=== PATIENT | male | born 1940 | race Caucasian/White ===

== ENCOUNTER 2017-06-15 15:19 | Emergency (ER) | payer MEDICARE, BC ==
[2017-06-15 16:22] VITALS: BP 168/82; PULSE 67; RESP 18; TEMP 97.9
--- NOTE | 2017-06-15 18:22 | ED ---
Upper Extremity HPI - General Chief Complaint: Extremity Injury, Upper Stated Complaint: finger swelling-sent by [facility] Time Seen by Provider: 06/15/17 17:39 Source: patient, RN notes reviewed, old records reviewed Mode of arrival: ambulatory Limitations: no limitations - History of Present Illness Initial Comments: This is a 77-year-old male presenting to the emergency Department chief complaint of right middle finger swelling and irritation. Patient reports he was stung by a yesterday, . Afterwards he put ice over it. He states that after putting ice on it he is now developed frostbite, blistering to the distal end of the finger. Patient reports he has no sensation distally. He was sent here after seeing a physician at [facility]. They sent him here to see a hand specialist. He already received antibiotics. Review of Systems ROS Statement: Those systems with pertinent positive or pertinent negative responses have been documented in the HPI. ROS Other: All systems not noted in ROS Statement are negative. Past Medical History Past Medical History: Diabetes Mellitus History of Any Multi-Drug Resistant Organisms: None Reported Past Surgical History: Cholecystectomy, Hernia Repair Additional Past Surgical History / Comment(s): laminectomy Past Psychological History: No Psychological Hx Reported Smoking Status: Current some day smoker Past Alcohol Use History: None Reported Past Drug Use History: None Reported General Exam - General Exam Comments Initial Comments: Is a 77-year-old male. No acute distress. Limitations: no limitations General appearance: alert, in no apparent distress Head exam: Present: atraumatic, normocephalic, normal inspection Eye exam: Present: normal appearance, PERRL, EOMI. Absent: scleral icterus, conjunctival injection, periorbital swelling ENT exam: Present: normal exam, mucous membranes moist Neck exam: Present: normal inspection. Absent: tenderness, meningismus, lymphadenopathy Respiratory exam: Present: normal lung sounds bilaterally. Absent: respiratory distress, wheezes, rales, rhonchi, stridor Cardiovascular Exam: Present: regular rate, normal rhythm, normal heart sounds. Absent: systolic murmur, diastolic murmur, rubs, gallop, clicks GI/Abdominal exam: Present: soft, normal bowel sounds. Absent: distended, tenderness, guarding, rebound, rigid Extremities exam: Present: normal inspection, full ROM, normal capillary refill. Absent: tenderness, pedal edema, joint swelling, calf tenderness Right Upper Arm exam: Present: normal inspection, full ROM Elbow exam: Present: normal inspection, full ROM Forearm Wrist exam: Present: normal inspection, full ROM Hand Wrist exam: Present: full ROM, swelling (Swelling over the left middle finger, has a bulla over the medial aspect of the middle finger.). Absent: normal inspection, tenderness Neuro motor exam: Present: wrist extension intact, thumb opposition intact, thumb IP flexion intact, thumb adduction intact, fingers 2-5 abduction intact Vascular: Present: normal capillary refill Back exam: Present: normal inspection Neurological exam: Present: alert, oriented X3, CN II-XII intact Psychiatric exam: Present: normal affect, normal mood Skin exam: Present: warm, dry, intact, normal color. Absent: rash Course Vital Signs 06/15/17 16:18 Temperature 97.9 F Pulse Rate 67 Respiratory 18 Rate Blood Pressure 168/82 O2 Sat by Pulse 97 Oximetry - Reevaluation(s) Reevaluation #1: 06/15/17 18:52 Patient is extremely upset due to the length of time that he was in the emergency department. Discussed that we have to triage based off of symptoms, and that she is very busy at this time. Patient continues to be irate. Procedures - Incision & Drainage Consent Obtained: verbal consent Time Out Performed?: Yes Indication: right middle finger blister Size (cm): 2 I&D Cleaning Method: Iodine Sterile Field Used?: Yes Irrigation Performed?: Yes I&D Drainage Obtained: Serous Culture Obtained?: No Patient Tolerated Procedure: well, no complications Medical Decision Making - Medical Decision Making 77-year-old male presents emergency department increased swelling over the medial middle right finger, after putting ice over it after receving a bee sting yesterday. Patient has what appears to be large bulla and blister over the distal phalanx. REports diminished sensation. Patient refused x-ray of the finger. Patient did receive incision and drainage over the blisters over the little finger. He was also evaluated byDr. Macario. Discussed that he needs follow-up with a hand specialist Dr. Dickerson, hand specialist Assessment will not have here this evening. Patient received antibiotics at urgent care earlier and does have a prescription for them. Discussed close follow-up with hand specialist. Patient agrees to treatment plan will comply. Return parameters were discussed. Disposition Clinical Impression: Frostbite with tissue necrosis of finger of right hand Disposition: HOME SELF-CARE Condition: Good Instructions: Frostbite (ED), Swollen Joint (ED) Additional Instructions: Patient advised to keep the finger covered. Follow up with hand specialist on Sunday. Motrin or Tylenol for pain. Return to emergency department if any alarming signs or symptoms occur. Referrals: Aspen Elliott MD [Primary Care Provider] - 1-2 days Som Dickerson DO [Doctor of Osteopathic Medicine] - 1-2 days Time of Disposition: 18:36
== END 2017-06-15 18:51 | disposition home or self-care (01) ==
LOC: EC 15:19
DX: T34.531A Frostbite with tissue necrosis of right finger(s), initial encounter (principal); F17.200 Nicotine dependence, unspecified, uncomplicated; X31.XXXA Exposure to excessive natural cold, initial encounter
CPT/HCPCS: 26010; 99283

== ENCOUNTER → 2019-04-01 | Outpatient (CLI) | payer MEDICARE, BC ==
--- NOTE | 2019-04-01 10:01 | XR ---
EXAMINATION TYPE: XR abdomen 1V DATE OF EXAM: 04/01/2019 9:54 AM CLINICAL HISTORY: Known left-sided nephrolithiasis TECHNIQUE: Single supine KUB image of the abdomen is obtained. COMPARISON: None. FINDINGS: There are multiple left-sided renal calculi the largest measuring up to 4 mm. There are at least 10 left renal calculi and at least 3 punctate right renal calculi. Atherosclerosis of the pelvi s and probable prostate gland calcifications are seen. No suspicious calculi along the courses of the ureters are identified. Extensive degenerative changes of the lumbosacral spine and femoral acetabul ar joints are seen with diffuse osseous demineralization. No dilated overlying bowel. Cholecystectomy clips are IMPRESSION: Bilateral renal calculi are seen, left greater than right, all subcentimeter measuring up to 4 mm on the left.
== END | disposition home or self-care (01) ==
LOC: RADXRMAIN 09:41
PROVIDERS: ATTEND Urology
DX: N20.0 Calculus of kidney (principal)
CPT/HCPCS: 74018

== ENCOUNTER → 2019-04-30 | Outpatient (CLI) | payer MEDICARE, BC ==
--- NOTE | 2019-04-30 11:01 | CT ---
EXAMINATION TYPE: CT abdomen pelvis wo con DATE OF EXAM: 04/30/2019 HISTORY: Left sided flank pain with history of kidney stones. CT DLP: 756.4 mGycm. Automated Exposure Control for Dose Reduction was Utilized. TECHNIQUE: CT scan of the abdomen and pelvis is performed without oral or IV contrast. COMPARISON: NONE FINDINGS: Within the limitations of a non-contrast study, the following observations are made. LUNG BASES: Linear scarring in the lingula is present. There is patchy atelectasis in the left lung b ase. Coronary artery calcification in the RCA distribution is seen. LIVER/GB: Cholecystectomy clips are noted. PANCREAS: No significant abnormality is seen. 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 ADRENALS: No significant abnormality is seen. KIDNEYS: There are 3-4 calculi scattered throughout the right kidney measuring 4 mm or smaller in siz e. Some central vascular calcifications are present. There are suspected 5-8 scattered calculi throug hout the left kidney measuring 5 mm or smaller in size. There are additional renal lesions, for refer ence there is 5.5 cm simple appearing cyst posteriorly upper pole level left kidney. There are smalle r exophytic hypodense and hyperdense lesions favoring simple cysts and proteinaceous/hemorrhagic cyst mid to lower pole level. There is cortical thinning bilaterally. There is no hydronephrosis or obstr ucting ureteral calculi clearly seen bilaterally. No intraluminal calculus in the bladder are seen. BOWEL: Diverticula throughout the colon are present most prominent in the left and sigmoid colon. No CT evidence for acute diverticulitis. Normal-appearing appendix is seen from cecum in the right upper pelvis. GENITAL ORGANS: Prostate gland is enlarged in size with central calcifications. Findings consistent w ith underlying BPH. LYMPH NODES: No greater than 1cm abdominal or pelvic lymph nodes are appreciated. OSSEOUS STRUCTURES: Spine is straightened on sagittal images. There is multilevel moderate to severe spurring and disc space narrowing most prominent L3-L4 level. Moderate narrowing and spurring of both hip joints is seen. OTHER: Dvyy-zb-olngezwy calcified plaque of the aorta extends into branch vessels. IMPRESSION: Bilateral nephrolithiasis without hydronephrosis or obstructing ureteral calculi clearly seen bilaterally. Distal colonic diverticulosis without convincing CT evidence for acute diverticulit is. No suspicious acute findings seen to account for patient's symptoms of left-sided flank pain.
== END | disposition home or self-care (01) ==
LOC: RADCTMAIN 08:01
PROVIDERS: ATTEND Urology
DX: N20.0 Calculus of kidney (principal); K57.30 Diverticulosis of large intestine without perforation or abscess without bleeding
CPT/HCPCS: 74176

== ENCOUNTER 2020-05-13 20:43 | Emergency (ER) | payer MEDICARE, BC ==
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
[2020-05-13 20:54] LABS: Glucose,Whole Blood 301 mg/dL (75-99)
[2020-05-13 21:08] LABS: Basophils # (A) 0.1 k/uL (0-0.2); Basophils % (A) 1 %; Eosinophils # (A) 0.3 k/uL (0-0.7); Eosinophils % (A) 3 %; HCT 47.9 % (39.0-53.0); HGB 16.2 gm/dL (13.0-17.5); Lymphocytes # (A) 1.4 k/uL (1.0-4.8); Lymphocytes % (A) 12 %; MCH 33.4 pg (25.0-35.0); MCHC 33.9 g/dL (31.0-37.0); MCV 98.4 fL (80.0-100.0); Mean Platelet Volume 7.1; Monocytes # (A) 0.5 k/uL (0-1.0); Monocytes % (A) 4 %; Neutrophils # (A) 8.8 k/uL (1.3-7.7); Neutrophils % (A) 80 %; Platelet Count 199 k/uL (150-450); RBC 4.86 m/uL (4.30-5.90); RDW 12.9 % (11.5-15.5); WBC 11.1 k/uL (3.8-10.6)
[2020-05-13 21:18] LABS: Potassium 4.2 mmol/L (3.5-5.1)
[2020-05-13 21:19] LABS: ALT 25 U/L (4-49); AST 34 U/L (17-59); African American GFR (CKD) >90 (>60 ml/min/1.73 sqM); Alcohol <10 mg/dL; Alkaline Phosphatase 67 U/L (38-126); Amylase 36 U/L (30-110); Anion Gap 7 mmol/L; Blood Urea Nitrogen 18 mg/dL (9-20); Calcium 9.3 mg/dL (8.4-10.2); Carbon Dioxide 24 mmol/L (22-30); Chloride 104 mmol/L (98-107); Creatine Kinase 303 U/L (55-170); Glucose 315 mg/dL (74-99); INR 0.9 (<1.2); Non-African American GFR(CKD) 86 (>60 ml/min/1.73 sqM); Partial Thromboplastin Time 22.1 sec (22.0-30.0); Prothrombin Time 9.8 sec (9.0-12.0); Sodium 135 mmol/L (137-145); Total Bilirubin 0.5 mg/dL (0.2-1.3); Total Protein 6.5 g/dL (6.3-8.2)
[2020-05-13] MEDS ORDERED: ONDANSETRON 4 MG/2 ML VIAL IVP STA (21:22)
[2020-05-13] MEDS ORDERED: HYDROmorphone 1 MG/ML 1 ML SYRINGE IVP STA ×2 (21:22→23:12)
[2020-05-13] MEDS ORDERED: DIPH,PERTUS(ACELL)TETVAC-LF 0.5 ML VIAL IM ONE (21:22)
[2020-05-13 21:48] LABS: Creatine Kinase MB 3.8 ng/mL (0.0-2.4); Troponin I <0.012 ng/mL (0.000-0.034)
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
[2020-05-13 22:21] LABS: Appearance,Urine Clear (Clear); Bilirubin,Urine Negative (Negative); Blood,Urine Small (Negative); Color,Urine Light Yellow; Glucose,Urine (UA) 4+ (Negative); Ketones,Urine Negative (Negative); Leukocyte Esterase,Urine Negative (Negative); Mucus,Urine Rare /hpf; Nitrite,Urine Negative (Negative); Protein,Urine 1+ (Negative); RBC,Urine 10 /hpf (0-5); Urobilinogen,Urine <2.0 mg/dL (<2.0); WBC,Urine 2 /hpf (0-5)
[2020-05-13 22:22] LABS: Amphetamine Screen,Urine Not Detected (NotDetected); Barbiturate Screen,Urine Not Detected (NotDetected); Benzodiazepines Screen,Urine Not Detected (NotDetected); Cocaine Screen,Urine Not Detected (NotDetected); Methadone Screen, Urine Not Detected (NotDetected); Opiate Screen,Urine Detected (NotDetected); Oxycodone Screen, Urine Not Detected (NotDetected); Phencyclidine Screen,Urine Not Detected (NotDetected); Tricyclic Antidepressant,Urine Not Detected (NotDetected); Urn Cannabinoid Scrn Not Detected (NotDetected)
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
[2020-05-14 00:09] VITALS: RESP 18
== END 2020-05-13 23:22 | disposition other institution (70) ==
LOC: EC 20:43
DX: S32.401A Unspecified fracture of right acetabulum, initial encounter for closed fracture (principal); S22.42XA Multiple fractures of ribs, left side, initial encounter for closed fracture; S51.012A Laceration without foreign body of left elbow, initial encounter; Z23 Encounter for immunization; E11.9 Type 2 diabetes mellitus without complications; Z79.899 Other long term (current) drug therapy; Z79.4 Long term (current) use of insulin; V29.9XXA Motorcycle rider (driver) (passenger) injured in unspecified traffic accident, initial encounter; Y92.410 Unspecified street and highway as the place of occurrence of the external cause
CPT/HCPCS: 99291; 96374; 96375; 96376; 90471; 36415; 93005; 86900; 86901; 80053; 82150; 82550; 82553; 83605; 83690; 84484; 85025; 85610; 85730; 86850; 81001; 80306; 80320; 72170; 71045; 72125; 70450; 71260; 74177; 90715; J2405; J1170; Q9967

== ENCOUNTER → 2020-07-09 | Outpatient (CLI) | payer MEDICARE, BC ==
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
== END | disposition home or self-care (01) ==
LOC: RADXRYALE 09:43
PROVIDERS: ATTEND Orthopaedic Surgery
DX: S32.401A Unspecified fracture of right acetabulum, initial encounter for closed fracture (principal)
CPT/HCPCS: 72170

== ENCOUNTER 2020-07-14 13:10 | Emergency (ER) | payer MEDICARE, BC ==
[2020-07-14 13:37] VITALS: RESP 18
--- NOTE | 2020-07-14 14:08 | XR ---
EXAMINATION TYPE: XR shoulder complete LT DATE OF EXAM: 07/14/2020 COMPARISON: NONE HISTORY: Pain TECHNIQUE: Three views are submitted. FINDINGS: The osseous structures are intact. There is no acute fracture or dislocation. There is a deformity o f the left distal clavicle which appears to be chronic. There appears to be a acute fracture of the l eft second, third, fourth, fifth, sixth, and seventh ribs. No sizable pneumothorax is seen in the vis ualized portion of the lung field. Arthropathy of the shoulder. IMPRESSION: 1. Deformity of the distal left clavicle likely is chronic with AC joint arthropathy. 2. There are numerous acute displaced left-sided rib fractures extending from the left second through at least 11 ribs laterally. No sizable pneumothorax on the visualized portion of the lungs. These we re reported by recent CT scan of 05/13/2020.
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
[2020-07-14 15:12] VITALS: BP 183/80; PULSE 64; TEMP 98
== END 2020-07-14 15:11 | disposition home or self-care (01) ==
LOC: EC 13:10
DX: M79.89 Other specified soft tissue disorders (principal); S22.42XA Multiple fractures of ribs, left side, initial encounter for closed fracture; E11.9 Type 2 diabetes mellitus without complications; Z79.899 Other long term (current) drug therapy; Z79.84 Long term (current) use of oral hypoglycemic drugs; Z79.4 Long term (current) use of insulin; V29.9XXA Motorcycle rider (driver) (passenger) injured in unspecified traffic accident, initial encounter; Y92.410 Unspecified street and highway as the place of occurrence of the external cause
CPT/HCPCS: 99283

== ENCOUNTER → 2021-05-13 | Outpatient (CLI) | payer MEDICARE, BC ==
--- NOTE | 2021-05-13 10:25 | XR ---
EXAMINATION TYPE: XR KUB DATE OF EXAM: 05/13/2021 10:00 AM CLINICAL HISTORY: kidney stone TECHNIQUE: Single supine KUB image of the abdomen is obtained. COMPARISON: 05/13/2019. FINDINGS: Scattered gas is seen in non-distended small bowel loops. Gas and fecal material is seen in non-distended colon. Left rib fractures are redemonstrated. Extensive right pelvic hardware is pr esent. The renal shadows are obscured by bowel contents; CT is more sensitive. IMPRESSION: The renal shadows are obscured by bowel contents; CT is more sensitive.
== END | disposition home or self-care (01) ==
LOC: RADXRMAIN 09:32
PROVIDERS: ATTEND Urology
DX: N20.0 Calculus of kidney (principal)
CPT/HCPCS: 74018

== ENCOUNTER → 2021-06-24 | Outpatient (CLI) | payer MEDICARE, BC ==
--- NOTE | 2021-06-24 10:48 | CT ---
EXAMINATION TYPE: CT abdomen pelvis wo con DATE OF EXAM: 06/24/2021 COMPARISON: 05/13/2020 HISTORY: Hematuria, Lt sided pain CT DLP: 1217 mGycm Examination of the solid and hollow viscera is limited given the lack of contrast. FINDINGS: LUNG BASES: No evidence for nodule. No evidence for infiltrate. LIVER/GB: The gallbladder is unremarkable. No space-occupying hepatic lesion. PANCREAS: No pancreatic mass identified. No inflammatory process seen. SPLEEN: No evidence for splenomegaly. No intrasplenic lesions seen. ADRENALS: No adrenal nodules identified. No evidence for thickening. KIDNEYS: Proximal right ureteral calculus measuring 4.9 mm resulting in moderate right-sided hydronep hrosis. Perinephric stranding noted. Multiple additional right renal calculi measuring up to 5 mm. Mu ltiple nonobstructing left-sided renal calculi measuring up to 5 mm. Multiple hypoattenuating lesions seen bilaterally may reflect cysts. BOWEL: Appendix has a normal appearance. No evidence of bowel obstruction. No inflammatory process. Lymph nodes: No evidence for adenopathy greater than 1 cm. Abdominal aorta: Atheromatous changes seen. No evidence for aneurysm. Genital organs: No significant abnormality. Other: Postoperative changes right pelvis. Degenerative change lumbar spine. IMPRESSION: 1. Bilateral nephrolithiasis with obstructing calculus proximal right ureter measuring 4.9 mm.
== END | disposition home or self-care (01) ==
LOC: RADCTMAIN 10:02
PROVIDERS: ATTEND Urology
DX: N13.2 Hydronephrosis with renal and ureteral calculous obstruction (principal)
CPT/HCPCS: 74176

== ENCOUNTER 2021-07-05 09:44 | Day surgery (SDC) | payer MEDICARE, BC ==
--- NOTE | 2021-07-03 14:13 | P.GSHP ---
History of Present Illness H&P Date: 07/03/21 81 yo male with a history of stones has been complaining of abdominal pain for a couple of weeks. A ct scan was obtained identifying bilateral small renal stones but a 5 mm mid to proximal right ureteral stone Because of the persistent pain he comes for a right ureteroscopy with laser lithotripsy and possible stent. - Constitutional Constitutional: Denies chills, Denies fever - EENT Eyes: denies blurred vision, denies pain Ears, nose, mouth and throat: Denies headache, Denies sore throat - Cardiovascular Cardiovascular: Denies chest pain, Denies shortness of breath - Respiratory Respiratory: Denies cough, Denies 7 - Gastrointestinal Gastrointestinal: Denies abdominal pain, Denies diarrhea, Denies nausea, Denies vomiting - Genitourinary (Female) Genitourinary: Denies dysuria, Denies hematuria - Genitourinary (Male) Genitourinary: Denies dysuria, Denies hematuria - Musculoskeletal Musculoskeletal: Denies myalgias - Integumentary Integumentary: Denies pruritus, Denies rash - Neurological Neurological: Denies numbness, Denies weakness - Psychiatric Psychiatric: Denies anxiety, Denies depression - Endocrine Endocrine: Denies fatigue, Denies weight change Past Medical History Past Medical History: Diabetes Mellitus History of Any Multi-Drug Resistant Organisms: None Reported Past Surgical History: Cholecystectomy, Hernia Repair Additional Past Surgical History / Comment(s): laminectomy Past Psychological History: No Psychological Hx Reported Smoking Status: Never smoker Past Alcohol Use History: None Reported Past Drug Use History: None Reported Medications and Allergies Home Medications Medication Instructions Recorded Confirmed Type Atorvastatin [Lipitor] 10 mg PO DAILY 05/13/20 05/13/20 History Cholecalciferol [Vitamin D3 (25 5,000 unit PO DAILY 05/13/20 05/13/20 History Mcg = 1000 Iu)] Dexlansoprazole [Dexilant] 60 mg PO DAILY 05/13/20 05/13/20 History Glucosam/Baldo-Msm1/C/[place]/Bosw 1 tab PO DAILY 05/13/20 05/13/20 History [Glucosamine-Chondroitin Tablet] Insulin Glargine,Hum.rec.anlog 24 unit SQ DAILY 05/13/20 05/13/20 History [Lantus Solostar] Multivitamins, Thera [Multivitamin 1 tab PO DAILY 05/13/20 05/13/20 History (formulary)] Naproxen Sodium [Aleve] 440 mg PO DAILY PRN 05/13/20 05/13/20 History [place]-3 Fatty Acids/Fish Oil [Fish 1 cap PO DAILY 05/13/20 05/13/20 History Oil 1,000 mg Softgel] Pioglitazone [Actos] 30 mg PO DAILY 05/13/20 05/13/20 History Saw [place] 320 mg PO DAILY 05/13/20 05/13/20 History Selenium 50 mcg PO DAILY 05/13/20 05/13/20 History Vitamin B Complex 2 cap PO DAILY 05/13/20 05/13/20 History glipiZIDE XL [Glucotrol Xl] 10 mg PO DAILY 05/13/20 05/13/20 History sitaGLIPtin PHOS/metFORMIN HCL 1 tab PO BID 05/13/20 05/13/20 History [Janumet 50-1,000 mg Tablet] Allergies Allergy/AdvReac Type Severity Reaction Status Date / Time No Known Allergies Allergy Verified 05/13/20 22:26 Surgical - Exam - General well developed, well nourished, moderate distress - Eyes PERRL - ENT no hearing loss - Neck trachea midline - Respiratory normal expansion, normal respiratory effort - Cardiovascular Rhythm: regular - Abdomen Abdomen: soft, non tender - Genitourinary normal penis with no external lesions, testicles present - Integumentary no rash, no growths - Neurologic normal coordination - Musculoskeletal normal gait - Psychiatric oriented to time, oriented to person, oriented to place Results - Imaging CT scan - abdomen: report reviewed, image reviewed CT scan - pelvis: report reviewed, image reviewed Assessment and Plan Assessment: Impression: Right ureteral stone with obstruction, bilateral renal stones Plan: right ureteroscopy with laser lithotripsy and possible stent. alternatives have been discussed.
[2021-07-04 13:31] VITALS: BMI 26.2
[~2021-07-05 09:44] MED LIST: DEXAMETHASONE SOD PHOSPHATE 4 MG/ML 1 ML VIAL IV ONE; HYDROmorphone 0.5 MG/0.5 ML SYRINGE IVP PRN; LACTATED RINGERS 1,000 ML IV SCH; LIDOCAINE 1% (10MG/ML) FOR IV START INTRADERMA PRN; MIDAZOLAM 2 MG/2 ML VIAL IV PRN; ONDANSETRON 4 MG/2 ML VIAL IVP ONE
[2021-07-05 11:03] LABS: Glucose,Whole Blood 184 mg/dL (75-99)
[2021-07-05] MEDS ORDERED: PROPOFOL 10 MG/ML 20 ML VIAL IV ONE (11:30)
[2021-07-05] MEDS ORDERED: SUCCINYLCHOLINE CHLORIDE 100 MG/5 ML SYR IV ONE (11:30)
[2021-07-05] MEDS ORDERED: LIDOCAINE 1% INJ 10MG/ML (20 ML MDV) ONE (11:30)
[2021-07-05] MEDS ORDERED: fentaNYL (PF) 50 MCG/ML 2 ML AMP ONE (11:30)
[2021-07-05] MEDS ORDERED: IOPAMIDOL-370 50ML BTL INJ ONE (12:05)
--- NOTE | 2021-07-05 12:37 | P.OP ---
Date of Procedure: 07/05/21 Preoperative Diagnosis: Right ureteral stone Postoperative Diagnosis: Bladder stones, right ureteral stones Procedure(s) Performed: Cystoscopy, removal bladder stones, right ureteroscopy laser lithotripsy Anesthesia: PETERA Surgeon: Leobardo Kohler Estimated Blood Loss (ml): 0 Pathology: other (Bladder stones, ureteral stones) Condition: stable Disposition: PACU Indications for Procedure: Patient is 81. He has a history of stones. He has been having pain. I get a KUB a couple weeks ago and there is no obvious ureteral stones. He has bilateral renal stones. The pain worsened thus a computed tomography scan identified a 5 mm proximal to mid ureteral stone on the right. He comes for right ureteroscopy and laser lithotripsy Description of Procedure: Patient brought the operating suite. Given general anesthesia. Placed lithotomy position with sterile prep and drape. Cystoscopy Foroblique lens and 21-[place] sheath identifies a trilobar obstructing prostate. Upon entering the bladder there are 3 stones which are irrigated out of the bladder. The bladder owens heavily trabeculated. Within a cone-tipped catheter right ureteral retrograde pyelograms performed to make sure that these were the right ureteral stone. There is a filling defect around the right iliac vessels consistent with ureteral stones. I passed the semirigid scope up to the stones. With the 365 laser probe the stone was broken into tiny fragments and flushed out of the ureter. I then moved proximal with a second stone was identified and broken up. The rest the ureters unremarkable. There is no significant remaining fragments remaining. The patient requested no stent and there is not enough edema to force of this. The bladder strain the patient's awake and returned recovery room good condition Impression successful removal bladder stones as well as right ureteroscopy laser lithotripsy. The patient we discharged home upon recovery and found the office in one week.
[2021-07-05 12:38] VITALS: TEMP 98.2
[2021-07-05 12:42] LABS: Glucose,Whole Blood 209 mg/dL (75-99)
[2021-07-05] MEDS ORDERED: INSULIN ASPART (NovoLOG) 100 UNIT/ML VIAL SQ ONE (12:53)
[2021-07-05 12:58] VITALS: RESP 16
[2021-07-05] MEDS ORDERED: LACTATED RINGERS 1,000 ML IV ONE (13:00)
[2021-07-05] MEDS ORDERED: HYDROmorphone 0.5 MG/0.5 ML SYRINGE IVP ONE (13:05)
[2021-07-05 13:42] VITALS: BP 175/83; PULSE 56
[2021-07-05] MEDS ORDERED: HYDROcodone/APAP 5-325MG 1 EACH TAB ONE (13:42)
[2021-07-05] MEDS ORDERED: HYDROcodone/APAP 5-325MG 1 EACH TAB PO ONE (13:44)
--- NOTE | 2021-07-05 19:02 | FL ---
EXAMINATION TYPE: FL urography retrograde DATE OF EXAM: 07/05/2021 FLUOROSCOPY Fluoroscopy time of 44 seconds was used during right kidney stone urologic intervention. 4 image/s d ocument/s the procedure.
== END 2021-07-05 14:11 | disposition home or self-care (01) ==
LOC: OR 09:44
PROVIDERS: ATTEND Urology
DX: N20.1 Calculus of ureter (principal); E11.9 Type 2 diabetes mellitus without complications; Z79.899 Other long term (current) drug therapy; Z79.4 Long term (current) use of insulin; M19.90 Unspecified osteoarthritis, unspecified site; K21.9 Gastro-esophageal reflux disease without esophagitis
CPT/HCPCS: 82365; 74420; 52356; C1758; J1100; J0690; J2405; J2001; J3010; J0330; J2704; J1170; Q9967

== ENCOUNTER → 2023-02-28 | Outpatient (CLI) | payer MEDICARE, BC ==
--- NOTE | 2023-02-28 15:05 | CT ---
EXAMINATION TYPE: CT pelvis wo con CT DLP: 833 mGycm, Automated exposure control for dose reduction was used. DATE OF EXAM: 02/28/2023 2:35 PM COMPARISON: CT pelvis 03/10/2023, CT abdomen and pelvis 06/24/2021 CLINICAL INDICATION:Male, 83 years old with history of M16.11; osteoarthritis TECHNIQUE: Standard CT of the pelvis without IV or oral contrast. Lack of IV or oral contrast limit s evaluation of solid and hollow organ viscera. YONAS protocol was utilized. Additional inclusion of t he bilateral knees. Coronal and sagittal reformats were performed. FINDINGS: KIDNEYS: Nonobstructive left 6 mm calculus. Exophytic left renal 2.6 cm cyst. BLADDER: Grossly unremarkable. Limited evaluation due to streak artifact from fixation hardware. REPRODUCTIVE: Vasectomy clips demonstrated. Enlarged prostate gland measuring 5.7 cm in transverse di mension. Central prostate calcifications noted. BOWEL: Descending colon and sigmoid colon diverticulosis without evidence for acute diverticulitis. T he visualized portion of the appendix is unremarkable. PERITONEUM: No evidence of pneumoperitoneum or free fluid. VASCULATURE: Atherosclerotic calcification of the bilateral common iliac arteries. MUSCULOSKELETAL: Diffuse bone demineralization. No acute osseous abnormality. No dislocation. Post fi xation changes involving the right inferior and superior pubic ramus and acetabulum with extension in to the right iliac bone. Hardware appears intact. Severe osteoarthritic changes of the right hip with joint space narrowing, marginal osteophytosis, and subchondral cysts. No sizable joint effusion iden tified. Moderate osteoarthritic changes with joint space narrowing, marginal osteophytosis, and subch ondral cystic formation. Moderate degenerative changes of the lower lumbar spine with disc space narr owing, endplate sclerosis, vacuum disc disease, and anterior osteophytosis. Moderate bilateral tricompartmental osteoarthritic changes of both knees with joint space narrowing, sclerosis, subchondral cystic changes and spurring. The right is greater than the left. There is eliel drocalcinosis involving the lateral tibiofemoral joint space of both knees. LYMPH NODES: No gross evidence for lymphadenopathy. SOFT TISSUE/ABDOMINAL WALL: Small fat filled umbilical hernia with punctate calcification. IMPRESSION: 1. No acute fracture. 2. Post fixation changes of the right hemipelvis with severe right hip osteoarthritic changes. Modera te left hip osteoarthritic changes. 3. Moderate bilateral knee osteoarthritic changes. 4. Prostatomegaly. 5. Colonic diverticulosis without evidence for acute diverticulitis.
== END | disposition home or self-care (01) ==
LOC: RADCTMAIN 13:57
PROVIDERS: ATTEND Orthopaedic Surgery
DX: M16.0 Bilateral primary osteoarthritis of hip (principal); M17.0 Bilateral primary osteoarthritis of knee; N40.0 Benign prostatic hyperplasia without lower urinary tract symptoms; K57.30 Diverticulosis of large intestine without perforation or abscess without bleeding
CPT/HCPCS: 72192